=== PATIENT | female | born 1930 | race Caucasian/White ===

== ENCOUNTER 2018-06-15 18:51 | Emergency (ER) | payer OTHER ==
[2018-06-15 19:07] VITALS: TEMP 98.1
[2018-06-15 19:55] LABS: BASOPHILS % (AUTO) 1 % (0-3); EOSINOPHILS % (AUTO) 3 % (0-9); HEMATOCRIT 37 % (35-47); HEMOGLOBIN 12.3 gm/dl (12.0-15.5); LYMPHOCYTES % (AUTO) 20.2 % (10-50); MEAN CORPUSCULAR HEMOGLOBIN 30.6 pg (27.0-32.0); MEAN CORPUSCULAR HGB CONC 33.6 gm/dl (32.0-36.0); MEAN CORPUSCULAR VOLUME 91 fL (81-99); MONOCYTES % (AUTO) 9.3 % (0-12); NEUTROPHILS % (AUTO) 66.7 % (37-80)
[2018-06-15] MEDS ORDERED: SODIUM CHLORIDE 0.9% FLUSH 10 ML SOL IV PRN (20:08)
[2018-06-15 20:18] LABS: ALBUMIN 3.6 gm/dl (3.4-5.0); ALKALINE PHOSPHATASE 85 IU/L (46-116); ALT 21 IU/L (14-63); AST 17 IU/L (15-37); BILIRUBIN,TOTAL 0.3 mg/dl (0.2-1.0); BLOOD UREA NITROGEN 23 mg/dl (7-18); CALCIUM 9.2 mg/dl (8.5-10.1); CARBON DIOXIDE 25.2 mEq/L (21-32); CHLORIDE 97 mMol/L (98-107); CREATININE 1.37 mg/dl (0.60-1.00); GLUCOSE 111 mg/dl (74-106); SODIUM 132 mMol/L (136-145); TROP I < 0.017 ng/ml (0.000-0.056)
[2018-06-15 20:55] VITALS: O2SAT 97
[2018-06-15 20:57] VITALS: BP 168/73; PULSE 65; RESP 16
== END 2018-06-15 20:52 | disposition home or self-care (01) | DRG 305 ==
LOC: ED 18:51
DX: I10 Essential (primary) hypertension (principal)
CPT/HCPCS: 36415; 80053; 83880; 84443; 84484; 85025; 93005; 99283; 99284